=== PATIENT | female | born 2005 | race Caucasian/White ===

== ENCOUNTER 2024-08-10 05:01 | Emergency (ER) | payer MEDICAID ==
[~2024-08-10] VITALS: Ht 170.2 cm; Wt 89.5 kg
[2024-08-10] MEDS ORDERED: PRED15SO72 PO (07:26)
[2024-08-10] MEDS ORDERED: AMOX-580 PO (07:26)
[2024-08-10 07:34] VITALS: BP 136/70; PULSE 85; RESP 16; TEMP 98; O2SAT 98
== END 2024-08-10 07:37 | disposition home or self-care (01) ==
LOC: ER 05:03
DX: J02.9 Acute pharyngitis, unspecified (principal)
CPT/HCPCS: 99283